=== PATIENT | male | born 2000 | race Hispanic/Latino ===

== ENCOUNTER 2025-02-18 19:50 | Emergency (ER) | payer SELFPAY ==
[~2025-02-18] VITALS: Ht 172.7 cm; Wt 100.7 kg
--- NOTE | 2025-02-18 21:27 | ERN ---
ED Note History of Present Illness Stated Complaint: NECK PAIN, HEADACHE DIZZINESS Chief Complaint: Multiple Complaints Time Seen by MD: 20:20 Dictation: This is a 24-year-old male patient who presented to the emergency room with complaints of neck pain and headache as well as dizziness that started since yesterday. Apparently he was washing his car and he began experiencing buzzing noise in his ears after which he started feeling dizzy and felt like he was going to throw up he came inside and rested and he stated that he vomited at least 4 or 5 times today with severe nausea feels very dizzy and has a sensation of room spinning. No fever chills or rigors. Most of the headache is in the neck area lower occipital area. No blurred vision facial droop diplopia motor weakness or seizure activity. Temperature 98 pulse 57 respirations 16 blood pressure 140/85 with a pulse oximetry of 100% on room air Allergies: Coded Allergies: No Known Allergies (Unverified Allergy, Unknown, 02/18/25) Home Meds Active Scripts Meclizine HCl (Meclizine HCl) 25 Mg Tablet, 25 MG PO TID for vertigo for 5 Days, #15 TAB 0 Refills Prov:AME DELGADO MD 02/18/25 Prednisone (Prednisone) 20 Mg Tablet, 1 TAB PO AD for 6 Days, #14 TAB 0 Refills TAKE 1 TAB BY MOUTH THREE TIMES PER DAY X3 DAYS, THEN TAKE 1 TAB BY MOUTH TWICE A DAY X2 DAYS, THEN TAKE 1 TAB BY MOUTH ONCE A DAY X1 DAY. Prov:AME DELGADO MD 02/18/25 Past Medical History Past Medical History: No Pertinent History, Other Additional Past Medical Hx: PRE DM Surgical History: None Family History: Negative Social History: ETOH (Occasional) RN Note Reviewed/Agreed w/PFSH: Yes Review of System Dictation Constitutional: Negative for fever,chills, and weight loss positive for dizziness and vertigo symptoms Eyes: Negative for injury, pain,redness, and discharge ENT: Negative for injury,pain or swelling Cardiovascular: Negative for chest pain, palpitations, and edema Respiratory: Negative for shortness of breath, cough, and wheezing, Abdomen/GI: Negative for abdominal pain,diarrhea, and constipation positive for nausea vomitings nausea, vomiting, Back: Negative for injury and pain : Negative for injury, bleeding and discharge MS/Extremity: Negative for injury and deformity Skin: Negative for rash, and discoloration Neuro: Positive e for headache, denied weakness, numbness, tingling, and seizure Psych: Negative for suicide ideation, homicidal ideation, and hallucinations Initial Vital Sign VS Vital Signs Date Time Temp Pulse Resp B/P (MAP) Pulse Ox O2 Delivery O2 Flow Rate FiO2 02/18/25 20:28 98.8 57 16 140/85 100 Room Air 02/18/25 20:36 0 21 Physical Exam Dictation General: awake, alert, NAD obese young male Head/Face: Normocephalic, atraumatic Eyes: PERRL, EOMI, vision at baseline mild nystagmus ENT: oral cavity clear, TMs clear, no signs of infection I could not test his hearing due to extremely busy emergency room Neck: Trachea midline, supple, no nuchal rigidity Cardiovascular: RRR, normal S1/S2, No MRGs, no JVD Respiratory: CTAB, no respiratory distress, No rales or wheezes Abdomen: Soft, non-tender, non-distended, normal bowel sounds, no guarding or rebound. Skin: Warm, dry, normal turgor, no rash MS/Extremity: Pulses equal, no cyanosis, neurovascular intact, FROM Neuro: COAx4, GCS 15, strength 5/5, CN 2-12 intact, normal cerebellar exam, normal gait, Psych: Normal behavior, mood, and affect normal Extremities-trace edema without any palpable cords, Homans sign is negative Results (Laboratory/Radiology) Laboratory/Radiology Laboratory Tests Test 02/18/25 20:56 02/18/25 21:33 02/18/25 22:35 White Blood Count 8.8 K/uL (4.8-10.8) Red Blood Count 4.86 MIL/uL (4.50-6.20) Hemoglobin 14.2 g/dL (14.0-18.0) Hematocrit 41.9 % (42-54) L Mean Corpuscular Volume 86.2 fL (79-99) Mean Corpuscular Hemoglobin 29.2 pg (27.0-33.0) Mean Corpuscular Hemoglobin Concent 33.9 g/dL (32.0-36.0) Red Cell Distribution Width 12.8 % (11.0-15.5) Platelet Count 277 K/uL (130-400) Mean Platelet Volume 9.3 fL (7.5-10.5) Nucleated Red Blood Cells 0.0 % (0.0-0.19) Sodium Level 138 mmol/L (136-145) Potassium Level 3.5 mmol/L (3.5-5.1) Chloride Level 102 mmol/L (101-111) Carbon Dioxide Level 31 mmol/L (21-32) Blood Urea Nitrogen 12 mg/dL (7-18) Creatinine 0.9 mg/dL (0.5-1.3) Glomerular Filtration Rate Calc 122 mL/min (>90) Random Glucose 102 mg/dL (70-105) Total Calcium 8.9 mg/dL (8.5-10.1) Urine Color LIGHT-YELLOW (YELLOW) Urine Appearance CLEAR (CLEAR) Urine pH 6.5 (5.0-8.0) Urine Specific Council 1.028 (1.001-1.031) Urine Protein NEGATIVE mg/dL (NEGATIVE) Urine Glucose (UA) NEGATIVE mg/dL (NEGATIVE) Urine Ketones NEGATIVE mg/dL (NEGATIVE) Urine Occult Blood +- (TRACE) (NEGATIVE) H Urine Nitrate NEGATIVE (NEGATIVE) Urine Bilirubin NEGATIVE mg/dL (NEGATIVE) Urine Urobilinogen 0.2 mg/dL (0.2-1.0) Urine Leukocyte Esterase NEGATIVE Dread/uL Urine RBC 2-5 /HPF (0-1) H Urine WBC 2-5 /HPF (0-1) H Urine Amorphous Crystals (Auto) RARE /LPF (None Seen) Urine Bacteria FEW /HPF (None Seen) Urine Opiates Screen NEGATIVE (NEGATIVE) Urine Barbiturates Screen NEGATIVE (NEGATIVE) Urine Phencyclidine Screen NEGATIVE (NEGATIVE) Urine Amphetamines Screen NEGATIVE (NEGATIVE) Urine Benzodiazepines Screen NEGATIVE (NEGATIVE) Urine Cocaine Screen NEGATIVE (NEGATIVE) Urine Marijuana (THC) Screen NEGATIVE (NEGATIVE) Labs Reviewed?: Yes ED Course ED Course Orders Procedure Category Date Status Time Cbc Without LAB 02/18/25 Complete Differential 21:01 Basic Metabolic Panel LAB 02/18/25 Complete 21:24 Ketorolac PHA 02/18/25 Complete Tromethamine 30mg/Ml 21:30 Meclizine Hcl 12.5 Mg PHA 02/18/25 Complete (Antivert 12.5 Mg) 21:30 Ondansetron Odt 4mg PHA 02/18/25 Complete Tab (Zofran 4mg Odt) 21:30 Urinalysis Profile LAB 02/18/25 Complete 21:27 Drug Screen Urine LAB 02/18/25 Complete 21:27 0.9% Nacl 500ml PHA 02/18/25 Complete Iv.Soln (Ns 500ml 21:30 Methylprednisolone PHA 02/18/25 Complete Succ 125mg (Solu-Medr 22:30 Current Medications Medications (Trade) Dose Ordered Sig/Christel Route PRN Reason Start Time Stop Time Status Last Admin Dose Admin Ketorolac Tromethamine (toRADol) 30 mg ONCE ONCE IM 02/18/25 21:30 02/18/25 21:31 DC 02/18/25 21:47 Meclizine HCl (ANTIvert 12.5 mg) 12.5 mg ONCE ONCE PO 02/18/25 21:30 02/18/25 21:31 DC 02/18/25 21:47 Methylprednisolone Sodium Succinate (Solu-medROL 125MG) 80 mg ONCE ONCE IVP 02/18/25 22:30 02/18/25 22:39 DC 02/18/25 22:45 Ondansetron HCl (zoFRAN 4MG ODT) 4 mg ONCE ONCE SL 02/18/25 21:30 02/18/25 21:31 DC 02/18/25 21:47 Sodium Chloride 500 ml @ 0 mls/hr ONCE ONCE IV 02/18/25 21:30 02/18/25 21:32 DC 02/18/25 21:46 Vital Signs Date Time Temp Pulse Resp B/P (MAP) Pulse Ox O2 Delivery O2 Flow Rate FiO2 02/18/25 22:00 98.4 59 18 116/72 100 Room Air* 0 21 02/18/25 20:36 58 18 130/79 98 Room Air* 0 21 02/18/25 20:28 98.8 57 16 140/85 100 Room Air We will perform diagnostic labs, and administer medications according to the patient's complaint. Once the results are available, will review and personally interpreted the labs to rule out any acute life-threatening emergency the trach require immediate intervention and treatment. I will then re-evaluate the patient after treatment and diagnostic exams have return to determine whether the patient requires any further testing, can safely be discharged home or need further admission to hospital for additional treatment and evaluation. 9:20 p.m. labs requested. Empiric Toradol and Zofran given. 10:25 p.m. labs reviewed CBC BNP 7 is with a normal limits. I updated the patient and her partner on available blood results and possibilities and a trial of steroid and meclizine to assess response. 11:40 p.m. patient feels significantly improved after hydration and above empiric treatment. Nausea has resolved and dizziness is much better We will discharge him to home on steroid and meclizine. Medical Decision Making MDM Differential diagnosis: Cervicalgia, cervical spondylosis, labyrinthitis, benign positional vertigo, dehydration Rationale: Tests considered and ordered secondary to shared decision making include: Previous outside records reviewed: Old ER visits. Risk of complication and/or morbidity or mortality of patient management: None Medications-Per medication reconciliation Need for hospitalization: Patient does not meet criteria for hospitalization. Need for emergency major/minor surgery: No There are no social concerns with this patient. Prescription drug management Prescriptions will include symptomatic care Patient's prior external medical records from other ER visits were reviewed by me as indicated. Prior testing and results from previous visits were reviewed. Prior tests were taken into account with medical decision making and resource utilization, independent historian/historians were used to obtain complete medical history. I independently interpreted the test that were performed, results were reviewed by me and considered findings on radiology if ordered. Medical management and examination interpretation discussions were had by me with other qualified healthcare professionals as indicated for the patient's care. Problem List Problem List: (1) Cervicalgia of [id number] region (2) Vertigo (3) Labyrinthitis DX & DISP Disposition: Discharge Departure Impression: Primary Impression: Vertigo Additional Impressions: Labyrinthitis, Cervicalgia of [id number] region Condition: Stable Scripts Meclizine HCl (Meclizine HCl) 25 Mg Tablet 25 MG PO TID for vertigo for 5 Days, #15 TAB 0 Refills Prov: AME DELGADO MD 02/18/25 Prednisone (Prednisone) 20 Mg Tablet 1 TAB PO AD for 6 Days, #14 TAB 0 Refills TAKE 1 TAB BY MOUTH THREE TIMES PER DAY X3 DAYS, THEN TAKE 1 TAB BY MOUTH TWICE A DAY X2 DAYS, THEN TAKE 1 TAB BY MOUTH ONCE A DAY X1 DAY. Prov: AME DELGADO MD 9/14/25 Additional Instructions: Patient and the caregiver have been informed of all the diagnostic tests and the imaging conducted during the today's visit to the emergency room and has verbalized understanding of the results I have personally reviewed and interpreted all diagnostic exams performed here in the ER today as well as the vital signs documented by the nursing staff. The patient is now being discharged to home and should follow up with the primary care physician or the specialist as directed by the ER staff. Follow-up with primary care provider in 1 to 2 days. Take medications as directed here in the emergency room. Okay to continue home medications unless otherwise discussed during your visit in the emergency room today. Return to your nearest emergency room if symptoms worsen or if there is no improvement. Call 911 if you need immediate assistance. Take Tylenol or Motrin [id number] as needed and if no contraindications are present. Increase oral hydration. A wound culture or urine culture was ordered here in the emergency room department please follow-up with primary care provider and advise them to get repeat ports from our facility. If you had any Santiago wrap/splints that were applied here, please do not remove them until you see your primary care or specialty. AME DELGADO MD Feb 18, 2025 21:27
[2025-02-18 21:41] LABS: NUCLEATED RED BLOOD CELLS 0.0 % (0.0-0.19); PLATELET COUNT (AUTO) 277.0 K/uL (130-400); RED BLOOD CELL COUNT(AUTO) 4.86 MIL/uL (4.50-6.20); RED CELL DISTRIBUTION WIDTH 12.8 % (11.0-15.5); WHITE BLOOD COUNT (AUTO) 8.8 K/uL (4.8-10.8)
[2025-02-18] MEDS: 0.9% NACL 500ML IV.SOLN 500 ML IV ONE (21:46)
[2025-02-18 21:55] LABS: CREATININE 0.9 mg/dL (0.5-1.3); GLOMERULAR FILTR. RATE CALC 122.0 mL/min (>90); GLUCOSE,RANDOM 102.0 mg/dL (70-105); SODIUM SERUM 138.0 mmol/L (136-145); UREA NITROGEN, BLOOD 12.0 mg/dL (7-18)
[2025-02-18 22:57] LABS: APPEARANCE,URINE CLEAR (CLEAR); GLUCOSE, URINE (UA) NEGATIVE (NEGATIVE); LEUKOCYTE ESTERASE ,URINE NEGATIVE Leu/uL (NEGATIVE); NITRATE,URINE NEGATIVE (NEGATIVE); OCCULT BLOOD,URINE +- (TRACE) (NEGATIVE)
[2025-02-18 22:59] LABS: ADD UA MICROSCOPIC YES
[2025-02-18 23:04] LABS: AMPHET/METH SCREEN,URINE NEGATIVE (NEGATIVE); BARBITURATE SCREEN, URINE NEGATIVE (NEGATIVE); CANNABINOID SCREEN,URINE NEGATIVE (NEGATIVE); COCAINE SCREEN,URINE NEGATIVE (NEGATIVE)
[2025-02-18] MEDS ORDERED: MECL-302 PO (23:42)
[2025-02-18] MEDS ORDERED: PRED20TA3 PO (23:42)
[2025-02-18 23:45] VITALS: BP 110/60; PULSE 60; RESP 18; TEMP 98.2; O2SAT 100
== END 2025-02-18 23:54 | disposition home or self-care (01) ==
LOC: EDH 19:50
DX: R42 Dizziness and giddiness (principal); H83.09 Labyrinthitis, unspecified ear; M54.2 Cervicalgia; Z79.899 Other long term (current) drug therapy
CPT/HCPCS: 99284; 96374; 80048; 80305; 85027; 81001; 36415; 96372; J1885; J2919; J7040